=== PATIENT | male | born 1980 | race Two or more races ===

== ENCOUNTER → 2025-03-25 | Emergency (ER) | payer OTHER ==
[~2025-03-25] VITALS: Ht 175.3 cm; Wt 105.7 kg
[~2025-03-25] MED LIST: NORVASC5 MG PO; SYNTHROID50 MCG
== END | disposition left against medical advice (07) ==
LOC: ER 21:48
DX: Z53.21 Procedure and treatment not carried out due to patient leaving prior to being seen by health care provider (principal)

== ENCOUNTER 2025-04-21 20:33 | Emergency (ER) | payer OTHER ==
[~2025-04-21] VITALS: Ht 172.7 cm; Wt 101.2 kg
[2025-04-21] MEDS ORDERED: LOTREL 5-20 MG1 CAP (20:46)
[2025-04-21] MEDS ORDERED: MOUNJARO2.5 MG/0.5 SQ (20:47)
[2025-04-21] MEDS ORDERED: FAMOTIDINE/PF 20 MG in 0.9 % SODIUM CHLORIDE 8 ML IV PUSH STA (21:22)
[2025-04-21] MEDS ORDERED: 0.9 % SODIUM CHLORIDE 1,000 ML IV SCH (21:30)
[2025-04-21] MEDS ORDERED: KETOROLAC TROMETHAMINE 30 MG VIAL IV ONE (21:30)
[2025-04-21 21:41] LABS: BASO % 0.1 % (0.1-1.2); EOS # 0.19 (0.04-0.54); EOS % 2.5 % (0.7-7.0); LYMPH # 2.56 (1.18-3.74); LYMPH % 33.4 % (19.3-53.1); MEAN PLATELET VOLUME 8.90 fl (9.4-12.4); MONO # 0.41 (0.24-0.82); MONO % 5.4 % (4.7-12.5); NEUT # 4.47 (1.56-6.13); NEUT % 58.3 % (34.0-71.1); RED CELL DISTRIBUTION WIDTH 13.2 % (11.6-14.4)
[2025-04-21 22:08] LABS: ALT/SGPT 29.0 U/L (12-78); AST/SGOT 14.0 U/L (15-37); BILIRUBIN TOTAL 0.46 mg/dL (0.3-1.2); BILIRUBIN,CONJUGATED 0.13 mg/dL (0.0-0.2); BUN CREA RATIO 13.0 (7.0-25.0); CREATININE SERUM 0.87 mg/dL (0.70-1.30); GFR 95.77; GLOBULINA 3.0 G/DL (2.4-3.5); GLUCOSE FASTING 87.0 mg/dL (65-100); OSMOLALITY SERUM 280.0 MOSM/KG (275-295)
[2025-04-21 22:27] LABS: URINE APPEARANCE Clear; URINE BILIRRUBIN Negative (NEGATIVE); URINE BLOOD Negative; URINE COLOR Yellow; URINE GLUCOSE Negative (NEGATIVE); URINE KETONE Negative (NEGATIVE); URINE LEUKOCYTE Negative; URINE NITRATE Negative; URINE PROTEIN Negative (NEGATIVE); URINE UROBILINOGEN 0.2 E.U./dl
[2025-04-21 22:33] LABS: URINE BACTERIA 0 uL (0.0-1933); URINE CAST 0.00 uL (0.0-1.40); URINE EPITHELIAL CELLS 1.0 uL (0.0-38.8); URINE RBC 0.4 uL (0.0-20.8); URINE WBC 1.6 uL (0.0-23.2)
[2025-04-21] MEDS ORDERED: PEPCID AC20 MG PO (22:54)
== END 2025-04-21 23:13 | disposition home or self-care (01) ==
LOC: ER 20:33
PROVIDERS: General Practice
DX: R10.12 Left upper quadrant pain (principal); R10.9 Unspecified abdominal pain; I10 Essential (primary) hypertension